=== PATIENT | female | born 1955 | race Caucasian/White ===

== ENCOUNTER 2018-03-01 11:15 | Inpatient (IN) ==
[2018-03-01] MEDS ORDERED: ONDANSETRON 4 MG/2 ML VIAL IV ONE ×2 (11:34→16:00)
[2018-03-01] MEDS ORDERED: LACTATED RINGERS 1,000 ML IV ONE (11:34)
--- NOTE | 2018-03-01 11:42 | Emergency Department Note ---
Abdominal Pain HPI - General Chief Complaint: Abdominal Pain Stated Complaint: Epigastric pain Time Seen by Provider: 03/01/18 11:31 Source: patient Mode of arrival: ambulatory - History of Present Illness HPI Narrative: This patient has had right upper quadrant epigastric pain for the last 12 hours or so. He has had some nausea and she just feels pain into her back some. Nothing specific brought it on. - Related Data Home Medications Medication Instructions Recorded Confirmed DULoxetine HCL [Cymbalta] 60 mg PO DAILY 04/06/15 03/01/18 Estrogens, Conjugated [Premarin] 0.3 mg PO DAILY 04/06/15 03/01/18 Omeprazole [PriLOSEC] 20 mg PO ACB 04/06/15 03/01/18 Zolpidem [Ambien] 10 mg PO HSP PRN 04/06/15 03/01/18 rOPINIRole HCL [Requip] 1 mg PO HS 04/06/15 03/01/18 traZODone HCL [Desyrel] 50 mg PO HS 04/06/15 03/01/18 Previous Rx's Medication Instructions Recorded Hydrocodone/APAP 7.5/325Mg [[place] 1 tab PO Q4-6HP PRN #20 tablet 09/19/16 7.5/325Mg] Allergies Allergy/AdvReac Type Severity Reaction Status Date / Time azithromycin [From Zithromax] Allergy Intermediate Hives Verified 03/01/18 11:20 Penicillins Allergy Intermediate Hives Verified 03/01/18 11:20 Review of Systems All systems ED: reviewed and negative except as stated. Abdominal Pain PMH - Past Medical History [facility] Narrative: Medical History Tendonitis of left knee (Acute) Tear of meniscus of right knee (Acute) Medical history: Reports: no medical history Psychiatric history: Reports: no psych history - Social History Smoking status: Former smoker Physical Exam Limitations: no limitations General appearance: alert Head: atraumatic Eye: Present: normal appearance ENT: normal exam Neck: Present: normal inspection Chest: Present: normal inspection Respiratory: Present: normal lung sounds bilaterally Cardiovascular: Present: regular rate, normal rhythm, normal heart sounds Abdominal: Present: soft, tenderness. Absent: distention, guarding, rebound, rigidity Abdominal tenderness: Present: RUQ, epigastrium Neurological: Present: alert Psychiatric: Present: normal affect, normal mood Skin: Present: warm, dry, intact Course Vital Signs Temperature 98.4 F 03/01/18 11:15 Pulse Rate 97 H 03/01/18 11:15 Respiratory Rate 16 03/01/18 11:15 Blood Pressure 134/88 03/01/18 11:15 Pulse Oximetry (%) 96 03/01/18 11:15 Temperature 98.4 F 03/01/18 11:15 Pulse Rate 84 03/01/18 13:02 Respiratory Rate 14 03/01/18 13:02 Blood Pressure 153/77 03/01/18 13:02 Pulse Oximetry (%) 95 03/01/18 13:02 Abdominal Pain - MDM Narrative Medical decision making narrative: This patient's gallbladder shows stones and her LFTs are elevated. She will be admitted to the hospital by Dr. Sanchez a surgeon. - Lab Data Lab results reviewed: Yes I reviewed the patient's lab results. Result diagrams: 03/01/18 11:48 03/01/18 11:48 Lab Results 03/01/18 03/01/18 03/01/18 Range/Units 11:35 11:48 11:48 WBC 6.3 (4.5-11.0) K/mcL RBC 4.93 (4.00-5.20) M/mcL Hgb 14.3 (12.0-15.0) g/dL Hct 43.1 (36.0-48.0) % MCV 87.3 (80.0-100.0) fL MCH 29.0 (26.0-34.0) pg MCHC 33.2 (31.0-36.0) g/dL RDW 13.8 (11.5-14.5) % Plt Count 301 (140-440) K/mcL MPV 8.4 (7.4-10.4) fL Gran % 72.0 (38.0-78.0) % Lymph % (Auto) 18.7 (15.5-49.0) % [place] % (Auto) 8.0 (1.0-12.0) % Eos % (Auto) 1.0 (0.0-7.0) % Baso % (Auto) 0.3 (0.0-2.0) % Gran # 4.5 (1.8-8.0) K/mcL Lymph # (Auto) 1.2 L (1.5-4.8) K/mcL [place] # (Auto) 0.5 (0.1-0.9) K/mcL Eos # (Auto) 0.1 (0.0-0.7) K/mcL Baso # (Auto) 0 (0.0-0.3) K/mcL Sodium 139 (133-145) mmol/L Potassium 4.3 (3.3-5.1) mmol/L Chloride 101 (96-108) mmol/L Carbon Dioxide 24 (22-30) mmol/L Anion Gap 14.0 (8-16) BUN 14 (8-23) mg/dl Creatinine 0.8 (0.6-1.1) mg/dl GFR Calculation 79 Glucose 102 (70-105) mg/dL Calcium 9.5 (8.6-10.4) mg/dl Total Bilirubin 1.6 H (0.0-1.0) mg/dL AST 579 H (0-37) U/l ALT 462 H (0-40) U/l Alkaline Phosphatase 179 H (39-117) U/L Total Protein 7.4 (5.9-8.4) gm/dL Albumin 4.3 (3.2-5.2) gm/dL Globulin 3.1 (2.2-3.7) gm/dL Albumin/Globulin Ratio 1.4 (1.0-2.3) Lipase 31 (7-60) U/L Urine Color Yellow Urine Appearance Hazy Urine pH 8.0 (5.0-9.0) Ur Specific [place] 1.015 (1.000-1.035) Urine Protein Neg (NEG) mg/dL Urine Glucose (UA) Negative (NEG) mg/dL Urine Ketones Neg (NEG) mg/dL Urine Occult Blood Neg (<0.03) mg/dL Urine Nitrate Neg (NEG) Urine Bilirubin Neg (NEG) mg/dL Urine Urobilinogen Neg (NEG) mg/dL Ur Leukocyte Esterase Neg (NEG) /uL Ur Culture Indicated? No - Radiology Data Radiology results reviewed: Yes I reviewed the patient's radiology results. Disposition Pt seen by FINANCIAL ACCOUNTANT/PA only: No Clinical Impression: Cholecystitis Condition: Undetermined Referrals: Lilian Manriquez ARNP [Primary Care Provider] - Time of Disposition: 13:15
[2018-03-01 12:45] LABS: Basophils # (Auto) 0 K/mcL (0.0-0.3); Basophils % (Auto) 0.3 % (0.0-2.0); Eosinophils # (Auto) 0.1 K/mcL (0.0-0.7); Lymphocytes # (Auto) 1.2 K/mcL (1.5-4.8); Lymphocytes % (Auto) 18.7 % (15.5-49.0); Mean Cell Volume 87.3 fL (80.0-100.0); Mean Corpuscular HGB Conc 33.2 g/dL (31.0-36.0); Monocytes # (Auto) 0.5 K/mcL (0.1-0.9); Platelet Count 301 K/mcL (140-440); RBC 4.93 M/mcL (4.00-5.20); Red Cell Distribution Width 13.8 % (11.5-14.5)
[2018-03-01 13:01] LABS: Appearance,Urine HAZY; Bilirubin,Urine NEG (NEG); Color,Urine YELLOW; Glucose,Urine (UA) NEGATIVE (NEG); Leukocyte Esterase,Urine NEG /uL (NEG); Protein,Urine NEG (NEG); Specific Gravity,Urine 1.015 (1.000-1.035); Urine Blood NEG mg/dL (<0.03); Urobilinogen,Urine NEG (NEG)
[2018-03-01 13:03] LABS: ALT/SGPT 462 U/l (0-40); Albumin 4.3 gm/dL (3.2-5.2); Albumin/Globulin Ratio 1.4 (1.0-2.3); Alkaline Phosphatase 179 U/L (39-117); Blood Urea Nitrogen 14 mg/dl (8-23); Lipase 31 U/L (7-60)
[2018-03-01] MEDS ORDERED: LEVOFLOXACIN 500 MG/100 ML BAG IV ONE (15:38)
[2018-03-01] MEDS ORDERED: ROCURONIUM 10 MG/ML ML IV ONE (16:00)
[2018-03-01] MEDS ORDERED: LIDOCAINE HCL/PF 100 MG/5 ML SYRINGE IV ONE (16:00)
[2018-03-01] MEDS ORDERED: MIDAZOLAM 5 MG/5 ML VIAL IV ONE (16:00)
[2018-03-01] MEDS ORDERED: DEXAMETHASONE 10 MG/ML VIAL IV ONE (16:00)
[2018-03-01] MEDS ORDERED: NEOSTIGMINE 1 MG/ML VIAL IV ONE (16:00)
[2018-03-01] MEDS ORDERED: fentaNYL 250 MCG/5 ML VIAL IV ONE (16:00)
[2018-03-01] MEDS ORDERED: GLYCOPYRROLATE 0.2 MG/ML VIAL IV ONE (16:00)
[2018-03-01] MEDS ORDERED: PROPOFOL 200 MG/20 ML VIAL IV ONE (16:00)
[2018-03-01] MEDS ORDERED: KETAMINE 100 MG/ML ML IV ONE (16:00)
[2018-03-01] MEDS ORDERED: LIDOCAINE 1% 20 ML VIAL SQ ONE (16:28)
[2018-03-01] MEDS ORDERED: IPRATROPIUM/ALBUTEROL 3 ML AMPUL.NEB NEB PRN (16:37)
[2018-03-01] MEDS ORDERED: LACTATED RINGERS 250 ML IV PRN (16:37)
[2018-03-01] MEDS ORDERED: HYDROmorphone 2 MG/ML VIAL IV PRN (16:37)
[2018-03-01] MEDS ORDERED: NALOXONE HCL 0.4 MG/ML VIAL IV PRN (16:37)
[2018-03-01] MEDS ORDERED: FLUMAZENIL 0.1 MG/ML ML IV PRN (16:37)
[2018-03-01] MEDS ORDERED: ONDANSETRON 4 MG/2 ML VIAL IV PRN ×2 (16:37→18:40)
[2018-03-01] MEDS ORDERED: MEPERIDINE 25 MG/ML SYRINGE IV PRN (16:37)
[2018-03-01] MEDS ORDERED: ACETAMINOPHEN 1,000 MG/100 ML BOTTLE IV ONE (16:37)
[2018-03-01] MEDS ORDERED: PROMETHAZINE 25 MG/ML VIAL IV PRN (16:37)
[2018-03-01] MEDS ORDERED: METHOCARBAMOL 1,000 MG/10 ML VIAL IV PRN (16:37)
[2018-03-01] MEDS ORDERED: BENZOCAINE/MENTHOL 1 LOZENGE PO PRN (16:37)
[2018-03-01] MEDS ORDERED: IOPAMIDOL 50 ML BOTTLE IJ ONE (16:39)
[2018-03-01] MEDS ORDERED: LACTATED RINGERS 1,000 ML IV SCH (16:45)
--- NOTE | 2018-03-01 17:49 | Ultrasound Report ---
CLINICAL INFORMATION: Epigastric pain COMPARISON: None. FINDINGS: Multiple small stones are seen in the gallbladder fundus. Gallbladder wall is normal thickness - 2 mm and there is no focal tenderness. The common bile duct is normal: 5 mm. Right kidney is normal size and echotexture - 10 x 6 cm with a 1 cm simple cyst superior pole. The pancreas and liver are normal in size and echotexture without focal lesion IMPRESSION: Cholelithiasis Liver, bile ducts, pancreas are normal Interpreted and Authenticated by: Hitesh Alberts 03/01/18
--- NOTE | 2018-03-01 17:54 | XRay Report ---
CLINICAL INFORMATION: Cholecystectomy evaluate for ductal stones COMPARISON: None. FINDINGS: Multiple digital images from the operating room with contrast injection of the cystic duct shows the intrahepatic, common hepatic and common bile ducts normal in contour and caliber. Initial injection shows a small filling defect, almost certainly an air bubble, in the common hepatic duct bifurcation. IMPRESSION: Negative Interpreted and Authenticated by: Hitesh Alberts 03/01/18
--- NOTE | 2018-03-01 18:03 | Brief Operative Note ---
Date of procedure: 03/01/18 Pre-op diagnosis: calculous cholecystitis Post-op diagnosis: other (calculous cholecystitis with choledocholithiasis with obstruction) Procedure: Laparoscopic cholecystectomy with intraoperative cholangiogram. Grafts/Implants: No Anesthesia: GETA Findings: calculous cholecystitis with choledocholithiasis with obstruction Complications: none Surgeon: Aileen Sanchez Estimated blood loss (cc): 10 Specimens Removed/Pathology: other (gallbladder) Condition: stable Disposition: PACU
[2018-03-01] MEDS: fentaNYL 100 MCG/2 ML VIAL IV PRN ×2 (18:20→18:30)
[2018-03-01] MEDS ORDERED: fentaNYL 100 MCG/2 ML VIAL IV ONE (18:27)
--- NOTE | 2018-03-01 18:35 | Consultation ---
DATE OF CONSULTATION: 03/01/2018 CHIEF COMPLAINT: Ms. Osorio is seen in consultation at the request of Dr. Moi Ty for upper abdominal pain and cholelithiasis. HISTORY OF PRESENT ILLNESS: Ms. Osorio patient is a 63-year-old woman who presented to the emergency department with complaints of abdominal pain that awoke her around 12:30 this morning. She describes the pain as in her upper mid abdomen and extending across the upper abdomen on both sides and then to the back. She tried to walk off the pain, but that did not help. She subsequently vomited which consisted of undigested food that she had for dinner. The pain persisted throughout the night, although she did have a moment of improvement briefly during which she got some rest, but then she awoke with pain again. She reports never having had pain like this before. Currently, her pain has improved due to medications given here in the Emergency Department. PAST MEDICAL HISTORY: Significant for restless leg syndrome, anxiety, and gastroesophageal reflux disease. She has had prior surgery with hysterectomy and colectomy done for endometriosis involving the colon. ALLERGIES: ZITHROMAX AND PENICILLIN BOTH CAUSE HIVES. MEDICATIONS: Estradiol, Ambien, trazodone, omeprazole, and duloxetine. SOCIAL HISTORY: The patient is a past smoker. She quit 7 years ago. Prior to that, she reports 1 pack per day for 20 years. REVIEW OF SYSTEMS: CONSTITUTIONAL: Denies chills, fever. CARDIOVASCULAR: Denies chest pain or pressure at rest or with exertion. She is not able to walk 2 flights of stairs, which she says this is related to the fact that she has arthritis in her knees and that limits her walking. Pulmonary reports a history of bronchitis in the past with her last episode several months ago. She denies any current pulmonary symptoms including cough or production of sputum. GENITOURINARY: No dysuria or hematuria. HEMATOLOGIC: No history of DVT or PE. Denies any history of prior blood transfusions. NEUROLOGIC: No history of seizure disorder or stroke. GASTROINTESTINAL: Abdominal pain with nausea and vomiting as per above. PHYSICAL EXAMINATION: VITAL SIGNS: Temperature 98.4, pulse 98, respirations 19, blood pressure 142/83, O2 saturations 97% on room air. GENERAL APPEARANCE: Ms. Osorio is a well-developed, well-nourished woman in no acute distress, but appears uncomfortable lying in a stretcher in the ER. HEENT: Head is normocephalic. Sclerae are white. Mucous membranes are moist. CHEST: Breath sounds are clear bilaterally. No rales or wheezes are heard. CARDIOVASCULAR: Regular rhythm, slightly tachy rate. ABDOMEN: Obese, soft. There is tenderness on palpation in the right upper quadrant with some tenderness also in the midepigastric region. No other tenderness on palpation of the abdomen. No masses palpated. No rebound or guarding. EXTREMITIES: Warm without edema or cyanosis. LABS AND STUDIES: CBC done in the Emergency Department shows a normal white blood cell count of 6.3. Hemoglobin is 14.3, hematocrit 43.1, and platelets 301. Serum chemistries show sodium of 139, potassium 4.3, chloride 101, BUN 14, creatinine 0.8, glucose 79, total bilirubin is elevated at 1.6 with a direct component of 1, AST is 579, ALT 462, alkaline phosphatase 179. Albumin is 4.3. Lipase is normal at 31. Urinalysis is negative for nitrates and leukocyte esterase. Images of the ultrasound performed in the Emergency Department was reviewed by me. The preliminary read shows stones in the fundus of the gallbladder with shadowing. Common bile duct is measured at 4.9 mm. ASSESSMENT AND PLAN: Calculous cholecystitis. During this evaluation, the patient reported that her pain was starting to increase as the pain medication was wearing off. I discussed with her findings on imaging and on labs. Her history and study results suggest calculous cholecystitis. I discussed the nature of this diagnosis using drawings to illustrate the anatomy. Recommendation is cholecystectomy. The risks and benefits of this procedure as well as alternatives were reviewed with the patient. Risks of the procedure include, but are not limited to bleeding, infection, injury to other organs, injury to the common bile duct, bile leak, risks of general anesthesia, and possible need for conversion from a laparoscopic to an open procedure. I also discussed with the patient finding of an elevated bilirubin level. Her common bile duct has a normal diameter on imaging but the presence of an elevated bilirubin suggest possibility of choledocholithiasis. If this is possible, would recommend trying for intraoperative cholangiogram to evaluate the patency of the common bile duct and the nature of this procedure was also reviewed with the patient. After discussing options of management, Ms. Osorio would like to proceed with surgery. She verbalized understanding of the risks and benefits of the laparoscopic cholecystectomy. We will proceed to the operating room once the crew was called in and the operating room is available. [email or web address] Job ID: [id number] Doc ID: [id number] Aileen Sanchez MD
[2018-03-01] MEDS: LACTATED RINGERS 1,000 ML IV SCH (19:12)
[2018-03-01] MEDS: ACETAMINOPHEN 1,000 MG/100 ML BOTTLE IV PRN (23:47)
[2018-03-02] MEDS ORDERED: ENALAPRILAT 1.25 MG/ML VIAL IV PRN (00:43)
[2018-03-02] MEDS ORDERED: ENALAPRILAT 1.25 MG/ML VIAL IV ONE (01:32)
[2018-03-02 05:02] LABS: Basophils # (Auto) 0 K/mcL (0.0-0.3); Basophils % (Auto) 0.3 % (0.0-2.0); Eosinophils # (Auto) 0 K/mcL (0.0-0.7); Eosinophils % (Auto) 0 % (0.0-7.0); Granulocytes % (Auto) 87.1 % (38.0-78.0); Lymphocytes # (Auto) 0.6 K/mcL (1.5-4.8); Lymphocytes % (Auto) 8.5 % (15.5-49.0); Mean Cell Volume 88.5 fL (80.0-100.0); Mean Corpuscular HGB Conc 32.4 g/dL (31.0-36.0); Mean Corpuscular Hemoglobin 28.6 pg (26.0-34.0); Monocytes # (Auto) 0.3 K/mcL (0.1-0.9); Monocytes % (Auto) 4.1 % (1.0-12.0); Platelet Count 262 K/mcL (140-440); RBC 4.44 M/mcL (4.00-5.20); Red Cell Distribution Width 14.3 % (11.5-14.5)
[2018-03-02 05:53] LABS: ALT/SGPT 619 U/l (0-40); Albumin 3.9 gm/dL (3.2-5.2); Albumin/Globulin Ratio 1.7 (1.0-2.3); Alkaline Phosphatase 198 U/L (39-117); Bilirubin,Direct 1.6 mg/dL (0.0-0.3); Blood Urea Nitrogen 8 mg/dl (8-23); Gamma Glutamyl Transpeptidase 299 U/L (5-36); Uric Acid 4.1 mg/dL (2.5-8.0)
[2018-03-02] MEDS: LACTATED RINGERS 1,000 ML IV SCH ×2 (05:55→19:37)
--- NOTE | 2018-03-02 07:22 | Operative Note ---
DATE OF OPERATION: 03/01/2018 PREOPERATIVE DIAGNOSIS: Calculus cholecystitis. POSTOPERATIVE DIAGNOSIS: Calculus cholecystitis and choledocholithiasis with obstruction. PROCEDURE PERFORMED: Laparoscopic cholecystectomy with intraoperative cholangiogram. SURGEON: Aileen Sanchez MD ANESTHETIC: General endotracheal anesthesia. INDICATIONS FOR PROCEDURE: The patient is a 63-year-old woman who presented to the emergency department today with complaints of right upper quadrant and mid upper abdominal pain that began around 12:30 last night. The pain has been persistent and she presented to the ER for evaluation because of its severity. She has had associated nausea and vomiting. On imaging, she has gallstones present with a normal common bile duct diameter. However, on laboratory studies the patient has elevated LFTs including an elevated bilirubin level with a direct component that is elevated to 1. She is tender on exam in the right upper quadrant in the area of the gallbladder. She is brought to the operating room for laparoscopic cholecystectomy. Because of elevated direct bilirubin component, intraoperative cholangiogram was to be performed. FINDINGS: Gallbladder was noted to have edema of the wall consistent with acute inflammation. Multiple small stones were noted through the wall of the gallbladder in the area of the neck of the gallbladder and some extending into the cystic duct. Intraoperative cholangiogram showed filling of the common duct as well as the left and right hepatic ducts; however, there was no flow of contrast into the duodenum. DESCRIPTION OF PROCEDURE: After obtaining informed consent, the patient was taken to the operating room where a timeout was taken to confirm that she was here for the above-stated procedure. She was given antibiotics preoperatively and SCDs were placed for DVT prophylaxis. She was placed in the supine position on the operating table and general endotracheal anesthesia was induced. A [place] catheter was then inserted under sterile technique. The abdomen was then prepped and draped in sterile manner. The abdomen was entered via supraumbilical incision through which the Dionisio trocar was placed. The abdomen was then insufflated with carbon dioxide. Once pneumoperitoneum was established, other trocars were placed through the abdominal wall under direct vision of the laparoscope; a 5 mm port in the midepigastric region, 5 mm port in the right subcostal region, and a 5 mm port in the right mid abdomen. The gallbladder was noted to be in its normal position with edema of the wall. The liver was fatty in appearance. The gallbladder was grasped at its fundus and retracted cephalad. The peritoneum overlying the infundibulum of the gallbladder was scored with electrocautery and blunt dissection was performed with the [place] dissector to dissect out the neck of the gallbladder and the infundibulum. The infundibulum was then grasped and retracted laterally to better display the anatomy of the gallbladder. The cystic duct was then identified and dissected out along its length until it was seen clearly entering into the neck of the gallbladder. Small stones were noted at the neck of the gallbladder and some extending into the cystic duct. Once the duct was well dissected out, the stones were milked backwards toward the neck of the gallbladder and then a Hemoclip was placed on the gallbladder side. An incision was then made in the cystic duct just proximal to the Hemoclip and the cholangiocatheter was inserted. It was secured in place with a Hemoclip and flow was tested and found to be adequate. Cholangiogram was then performed with visualization with fluoroscopy. Contrast was seen filling the common duct as well as the right and left hepatic ducts. Flow was found to extend to what was thought to be the distal common duct, but there was no flow of contrast noted into the duodenum. Attempts at further instillation of contrast resulted in a feeling of pressure that had not been felt initially with installation of contrast. Because of the resistance to injection of any further contrast and no sign of any contrast entering into the duodenum, cholangiogram was stopped. The catheter was withdrawn. The cystic duct was then doubly ligated on the side to remain and then cut completely at the site of initial incision. The cystic artery was then dissected out along its length until it was seen clearly entering onto the wall of the gallbladder. It was doubly ligated on the side to remain and singly ligated on the gallbladder side and divided between clips with scissors. Next, a blunt dissection was performed at the neck of the gallbladder, removing it from the liver bed using intermittent electrocautery as needed. A posterior arterial branch was noted in this area and this was ligated with a Hemoclip. The gallbladder was then removed from the liver bed using electrocautery. It was then placed in an endocatch device and removed via the Dionisio trocar site. Pneumoperitoneum was reestablished. The right upper quadrant was irrigated and suctioned of the irrigant. The cystic duct and cystic artery remnants as well as the liver bed were all inspected for any evidence of bile leak or bleeding; there was none. Trocars were then removed from the port sites under direct vision of laparoscope while inspecting their sites for bleeding; there was none. Pneumoperitoneum was evacuated. Fascia at the Dionisio trocar site was closed using 0 Vicryl suture in a running fashion. Each of the incisions sites was injected with 1% lidocaine to help with postoperative pain control. The skin at each incision was then closed with a 4-0 Monocryl suture in a running intracuticular fashion. SPONGE AND NEEDLE COUNTS: Correct at the end of case. The patient tolerated the procedure well and there were no immediate complications. ESTIMATED BLOOD LOSS: 10 mL IV FLUIDS: 2 liters. SPECIMEN: Gallbladder. RC:[email or web address] Job ID: [id number] Doc ID: [id number] Aileen Sanchez MD
[2018-03-02] MEDS: LEVOFLOXACIN 500 MG/100 ML BAG IV SCH (09:16)
--- NOTE | 2018-03-02 13:04 | Internal Medicine Consult Note ---
Medical - CN: [facility] - Data of Consult Patient: new to practice Consult date: 03/02/18 Requesting Physician: Aileen Sanchez Primary Care Provider: Lilian Manriquez Family Provider: Lilian Manriquez - Consult Narrative Reason for consult: Biliary obstruction on intraoperative cholangiogram. History of present illness: Ms. Osorio is a 63 year old F who presented for evaluation of acute onset RUQ abdominal pain and nausea on 03/01 and was discovered to have cholelithiasis with elevated liver enzymes (alk phos 179, ALT 452, AST 579, total bilirubin 1.6 ). She subsequently underwent laparoscopic cholecystectomy on 03/01. Intraoperative cholangiogram revealed a small filling defect at common hepatic duct bifurcation (suspected air bubble) and contrast did not flow to duodenum. Thus, ERCP was requested. She denies any ongoing abdominal pain complaints suggestive of biliary obstruction, but appears mildly icteric today. Her daughter, Meena, is at the bedside. CC: Aileen Sanchez Medical - CN: PMH Medical history: GERD. RLS. Surgical history: bilateral knee surgeries, laprascopic cholecystectomy, colon resection for endometriosis Medical - CN: Meds Home Medications Medication Instructions Recorded Confirmed Type DULoxetine HCL [Cymbalta] 60 mg PO DAILY 04/06/15 03/01/18 History Omeprazole [PriLOSEC] 20 mg PO ACB 04/06/15 03/01/18 History Zolpidem [Ambien] 10 mg PO HSP PRN 04/06/15 03/01/18 History rOPINIRole HCL [Requip] 1 mg PO HS 04/06/15 03/01/18 History traZODone HCL [Desyrel] 50 mg PO HS 04/06/15 03/01/18 History Hydrocodone/APAP 7.5/325Mg [[place] 1 tab PO Q4-6HP PRN #20 tablet 09/19/16 Rx 7.5/325Mg] Estradiol [Estrace] 1 mg PO DAILY 03/01/18 03/02/18 History Oxybutynin Chloride [Ditropan] PO DAILY 03/01/18 History Polyethylene Glycol 3350 [Miralax] 17 gm PO DAILYP PRN 03/01/18 03/01/18 History Allergies Allergy/AdvReac Type Severity Reaction Status Date / Time azithromycin [From Zithromax] Allergy Intermediate Hives Verified 03/01/18 11:20 Penicillins Allergy Intermediate Hives Verified 03/01/18 11:20 Medical - CN: Exam - Constitutional Vitals: Temp Pulse Resp BP Pulse Ox 98.6 F 88 18 134/79 91 03/02/18 10:45 03/02/18 04:00 03/02/18 10:45 03/02/18 10:45 03/02/18 10:45 General appearance: average body habitus, cooperative, no acute distress - Head Head exam: Present: atraumatic, normal inspection - Neck Neck exam: Present: normal inspection. Absent: lymphadenopathy, thyromegaly - Respiratory Respiratory exam: Present: normal respiratory exam, CTAB - Cardiovascular Cardiovascular exam: Present: normal rate and rhythm. Absent: diastolic murmur , systolic murmur - GI/Abdominal GI/Abdominal exam: Present: normal bowel sounds, soft, tenderness. Absent: mass , organomegaly Additional comments: Dressings to laparoscopy sites clean dry intact. - Psychiatric Psychiatric exam: Present: normal affect, normal mood - Skin Skin exam: Present: dry, normal color, warm Medical - CN: Result - Labs CBC & Chem 7: 03/02/18 03:48 03/02/18 03:48 Labs: Short CBC 03/02/18 Range/Units 03:48 WBC 7.2 (4.5-11.0) K/mcL Hgb 12.7 (12.0-15.0) g/dL Hct 39.3 (36.0-48.0) % Plt Count 262 (140-440) K/mcL BMP 03/01/18 03/02/18 11:48 03:48 Sodium 139 137 Potassium 4.3 4.5 Chloride 101 100 Carbon Dioxide 24 24 BUN 14 8 Creatinine 0.8 0.7 Glucose 102 129 H Calcium 9.5 8.9 Liver Function 03/01/18 03/01/18 03/02/18 Range/Units 11:48 11:48 03:48 Total Bilirubin 1.6 H 2.1 H (0.0-1.0) mg/dL Direct Bilirubin 1.0 H 1.6 H (0.0-0.3) mg/dL GGT 299 H (5-36) U/L AST 579 H 451 H (0-37) U/l ALT 462 H 619 H (0-40) U/l Alkaline Phosphatase 179 H 198 H (39-117) U/L Albumin 4.3 3.9 (3.2-5.2) gm/dL Urine 03/01/18 Range/Units 11:35 Urine Color Yellow Urine Appearance Hazy Urine pH 8.0 (5.0-9.0) Ur Specific [place] 1.015 (1.000-1.035) Urine Protein Neg (NEG) mg/dL Urine Glucose (UA) Negative (NEG) mg/dL Medical - CN: A/P (1) Choledocholithiasis Status: Acute Assessment and plan: Will arrange for ERCP today. This was discussed at length with the patient and her daughter, using an illustration to describe procedures and possible risks of bleeding, perforation, infection and pancreatitis. She appears to understand the plan and has agreed to proceed. Patient is NPO. She will be given nitroglycerin patch 40 minutes prior to procedure and Indomethacin suppository to reduce risk of pancreatitis.
[2018-03-02] MEDS ORDERED: INDOMETHACIN 50 MG SUPP.RECT PR ONE (14:00)
[2018-03-02] MEDS ORDERED: NITROGLYCERIN 0.6 MG/HR PATCH TD ONE (14:20)
[2018-03-02] MEDS ORDERED: INDOMETHACIN 25 MG CAPSULE PO SCH (15:00)
[2018-03-02] MEDS ORDERED: MIDAZOLAM 2 MG/2 ML VIAL IV ONE (15:01)
[2018-03-02] MEDS ORDERED: PROPOFOL 200 MG/20 ML VIAL IV ONE (15:01)
[2018-03-02] MEDS ORDERED: IOHEXOL 300 10 ML VIAL IJ ONE (16:50)
[2018-03-02] MEDS: ACETAMINOPHEN 1,000 MG/100 ML BOTTLE IV PRN (20:07)
[2018-03-03] MEDS: ACETAMINOPHEN 1,000 MG/100 ML BOTTLE IV PRN (04:04)
[2018-03-03 05:52] LABS: ALT/SGPT 350 U/l (0-40); Albumin 3.5 gm/dL (3.2-5.2); Albumin/Globulin Ratio 1.6 (1.0-2.3); Alkaline Phosphatase 148 U/L (39-117); Amylase 73 U/L (28-100); Blood Urea Nitrogen 11 mg/dl (8-23)
[2018-03-03] MEDS: LACTATED RINGERS 1,000 ML IV SCH (06:22)
[2018-03-03] MEDS: LEVOFLOXACIN 500 MG/100 ML BAG IV SCH (08:47)
--- NOTE | 2018-03-03 11:24 | Discharge Summary ---
Providers - Providers Patient information: Note initiated : 03/03/18 at 11:22 am Service Date, if different from initiated Date: [] Patient: Alice Osorio 63 y/o F admitted on 03/01/18 for Epigastric Pain/ Calculous Cholecystitis. Chief Complaint: [] Date of admission: 03/01/18 Discharge date: 03/03/18 Attending physician: Alicia Meek gastroenterology Hospitalization Hospital course: 63-year-old female who presented with a 2 day history of recurrent abdominal pain with associated nausea and vomiting. She was diagnosed as having cholelithiasis with cholecystitis. She underwent cholecystectomy with cholangiogram. Cholecystectomy was uneventful however cholangiogram showed no flow into the duodenum. Dr. aLyton of the GI service was consulted and he did ERCP with stone extraction on 02 March. She has done well in the postoperative period and her bilirubin and transaminases are trending. Amylase and lipase are normal. She is tolerating a diet without discomfort and is stable for discharge. She will see Dr. Layton as an outpatient on to have a pancreatic stent removed. She will follow-up with me in the office in 2 weeks. Discharge diagnosis: cholelithiasis with cholecystitis Secondary discharge diagnosis: Choledocholithiasis Reason for admission: abdominal pain nausea and vomiting Procedures: Laparoscopic cholecystectomy with cholangiogram on February 23 Endoscopic retrograde cholangiopancreatography with stone extraction on February 23 Complications: None Exam Temp Pulse Resp BP Pulse Ox 98.0 F 79 16 156/76 92 03/03/18 07:37 03/03/18 07:37 03/03/18 07:37 03/03/18 07:37 03/03/18 07:37 - General physical appearance well developed, well nourished, no distress - Eyes PERRL, normal ocular movement - ENT normal pinna, normal nares, normal mucosa, no hearing loss, no congestion - Head Head exam IM: Present: atraumatic, normocephalic - Neck no masses, no bruits, trachea midline, no lymphadectomy, no venous distension - Cardiovascular Cardiovascular exam IM: Present: normal rate and rhythm - Respiratory normal expansion, normal respiratory effort, clear to percussion, clear to auscultation - Abdomen Abdomen: Present: soft, tender (mild tenderness around port sites otherwise unremarkable), bowel sounds Hernia: Present: none - Genitourinary Present: normal external genitalia - Integumentary Present: no rash, no growths, no abnormal pigmentation - Neurologic Present: normal coordination, normal sensation - Musculoskeletal Present: normal gait, normal posture - Psychiatric Present: oriented to time, oriented to person, oriented to place, speech is normal, memory intact Discharge Plan - Patient/Caregiver Discharge Instructions Activity: increase activity as tolerated Diet: Low Fat Additional Instructions: Follow-up with Dr. Fermin on for stent removal Follow-up with me in office in 2 weeks for final evaluation Prescriptions: RX: HYDROcodone/ACETAMINOPHEN [Hydrocodon-Acetaminophn 10-300] 1 tab PO Q4H PRN #30 tab PRN Reason: Pain Level > 6 - Follow up Plan Follow up with: Lilian Manriquez ARNP [Primary Care Provider] - Disposition: Home, Self-Care Prognosis: Good Rehab Potential: Good I certify that the patient requires SNF services.: No Overall status at discharge: patient is not back to baseline Pending Studies Diet Regular Diet Start FriMar 03 926 Enalaprilat (Vasotec) 1.25 mg IV Q6HP PRN PRN Reason: Hypertension Last Admin: 03/02/18 01:34 Dose: 1.25 mg Lactated Ringer's (Lactated Ringers) 1,000 mls @ 100 mls/hr IV .Q10H [facility] Last Admin: 03/03/18 06:22 Dose: 100 mls/hr Infusion: 03/03/18 05:37 Dose: 100 mls/hr Admin: 03/02/18 19:37 Dose: 100 mls/hr Infusion: 03/02/18 15:55 Dose: 100 mls/hr Admin: 03/02/18 05:55 Dose: 100 mls/hr Infusion: 03/02/18 05:55 Dose: 100 mls/hr Admin: 03/01/18 19:12 Dose: 100 mls/hr Levofloxacin (Levaquin) 500 mg in 100 mls @ 100 mls/hr IV Q24H [facility] Last Admin: 03/03/18 08:47 Dose: 100 mls/hr Infusion: 03/02/18 11:02 Dose: 100 mls/hr Admin: 03/02/18 09:16 Dose: 100 mls/hr Acetaminophen (Ofirmev) 1,000 mg in 100 mls @ 200 mls/hr IV Q8HP PRN PRN Reason: PAIN/FEVER > 101 Last Admin: 03/03/18 04:04 Dose: 200 mls/hr Infusion: 03/02/18 20:40 Dose: 0 mls/hr Admin: 03/02/18 20:07 Dose: 200 mls/hr Infusion: 03/02/18 00:44 Dose: 0 mls/hr Admin: 03/01/18 23:47 Dose: 200 mls/hr Morphine Sulfate (Morphine) 1 - 2 mg IV Q3HP PRN PRN Reason: PAIN LEVEL > 6 Last Admin: 03/03/18 08:47 Dose: 2 mg Admin: 03/03/18 04:04 Dose: 2 mg Admin: 03/02/18 22:46 Dose: 2 mg Admin: 03/02/18 14:55 Dose: 2 mg Admin: 03/02/18 11:21 Dose: 2 mg Admin: 03/02/18 07:59 Dose: 2 mg Admin: 03/02/18 04:57 Dose: 2 mg Admin: 03/02/18 02:04 Dose: 2 mg Admin: 03/01/18 23:28 Dose: 1 mg Admin: 03/01/18 22:51 Dose: 1 mg Admin: 03/01/18 20:22 Dose: 1 mg Shift Summary 03/03/18 03:35 Shift Summary by Francis,Mary Dozed most of the night, didn't sleep well. Says she usually takes Ambien for bed. Hopefully she can start on a clear liquid today & get her home meds ordered. Has had pain meds twice for me. Turns self in bed w/o problems. [place] draining dark, jose j urine; hoping to have it d/c today. Will have a clear for breakfast per Dr Layton, to be advanced by Dr Meek. Initialized on 03/03/18 03:35 - END OF NOTE
[2018-03-03] MEDS ORDERED: HYDROcodone/APAP 10/325MG TABLET PO ONE (11:59)
--- NOTE | 2018-03-03 12:09 | ERCP Procedure Note ---
ERCP Procedure Notes - Procedure Information Patient information: Note initiated : 03/03/18 at 12:07 pm Service Date: 03/02/18 Patient: Alice Osorio 63 y/o F admitted on 03/01/18 for Epigastric Pain/ Calculous Cholecystitis. Pre-op diagnosis general: Common bile duct stone. Post-op diagnosis general: Common bile duct stone. Procedure narrative: The procedures, alternatives and risks were discussed with the patient and the patient's questions were answered. Patient advised of risks of bleeding, perforation, infection and pancreatitis. With endoscopist-administered intravenous sedation, the Olympus side viewing operating duodenoscope was introduced into the esophagus and advanced to the second part of the duodenum without difficulty. The ampulla of Vater appeared normal. Papillotomy performed. Pnacreatic stent was placed. The bile duct was selectively cannulated taking care to avoid the pancreatic duct and cholangiogram obtained. The bile duct was markedly dilated and obstructed with a common duct stone. All visible stones were extracted with balloon techniques. At the end of the procedure, the bile duct appeared to be cleared of all stones. The scope was withdrawn. Assessment: Common bile duct stone. Pancreatic stent will need to be removed later this week.
--- NOTE | 2018-03-03 12:31 | Surgical Pathology Report ---
HISTOLOGY SPECIMEN MICROSCOPIC DIAGNOSIS GALLBLADDER, CHOLECYSTECTOMY: -- SUBACUTE AND CHRONIC CHOLECYSTITIS WITH CHOLELITHIASIS. (ACP:alicia) PROCEDURAL IMPRESSION Cholecystitis. GROSS DESCRIPTION Received in formalin labeled gallbladder, is a 9.5 x 4 x 3.8 cm purple-appiah gallbladder. The serosal surface is smooth and glistening. There are two metal clips present, including one on the cystic duct. The lumen contains viscous light green fluid and multiple yellow stones ranging in size from 0.1 to 0.4 cm in greatest dimension. The mucosa is pale appiah and semitranslucent with yellow trabecular deposits. The wall thickness ranges from less than 0.1-0.2 cm. Grossly no lesions are identified. [employer] sections submitted - one cassette. (STS:archie) Electronically Signed by: Jeremie Brandon M.D.
--- NOTE | 2018-03-04 18:01 | XRay Report ---
CLINICAL INFORMATION: Choledocholithiasis COMPARISON: None. FINDINGS: Three digital images submitted pancreas stent in expected location.. Stones, manifest as filling defects in the distal common bile duct, were successfully retrieved with a balloon catheter by Dr. Layton. A papillotomy was performed resulting in good drainage IMPRESSION: Choledocholithiasis successfully treated by Dr. Layton with balloon catheter extraction. Papillotomy was performed. Pancreatic stent placed in satisfactory position Interpreted and Authenticated by: Hitesh Alberts 03/04/18
== END 2018-03-03 14:05 | disposition home or self-care (01) | DRG 419 ==
LOC: ED 11:15 → SUR 15:26 → MEDSUR 18:39
PROVIDERS: ADMIT Surgery; ATTEND Family Medicine Adult Medicine
PROC: ERCPPAP (ICD-10-PCS; 2018-03-02 15:15)